=== PATIENT | female | born 1960 | race Asian ===

== ENCOUNTER → 2017-04-03 | Outpatient (CLI) | payer OTHER | LOC: BRMIMAGING 08:28 | PROVIDERS: ATTEND Physician Assistant Medical | DX: Z12.31 Encounter for screening mammogram for malignant neoplasm of breast (principal) | CPT/HCPCS: G0202 ==

== ENCOUNTER → 2018-04-06 | Outpatient (CLI) | payer OTHER | LOC: BRMIMAGING 08:22 | DX: Z12.31 Encounter for screening mammogram for malignant neoplasm of breast (principal) ==